=== PATIENT | female | born 1970 | race Caucasian/White ===

== ENCOUNTER 2021-12-15 08:56 | Outpatient (CLI) | payer BC | END 2021-12-15 08:57 | disposition home or self-care (01) | LOC: TBSIIMAG 08:56 | PROVIDERS: ATTEND Neurological Surgery | DX: M54.12 Radiculopathy, cervical region (principal); Z98.890 Other specified postprocedural states | CPT/HCPCS: 72040 ==

== ENCOUNTER 2022-01-26 09:58 | Outpatient (CLI) | payer BC | END 2022-01-26 09:59 | disposition home or self-care (01) | LOC: TBSIIMAG 09:58 | PROVIDERS: ATTEND Physician Assistant | DX: M50.20 Other cervical disc displacement, unspecified cervical region (principal); Z98.890 Other specified postprocedural states | CPT/HCPCS: 72040 ==